=== PATIENT | male | born 1960 | race Caucasian/White ===

== ENCOUNTER 2018-06-15 21:28 | Emergency (ER) | payer MEDICAID ==
[~2018-06-15] VITALS: Ht 188 cm; Wt 104.4 kg
[2018-06-15 21:31] VITALS: RESP 16; Ht 188 cm; Wt 104.4 kg
[2018-06-15 21:34] VITALS: BP 195/94; PULSE 61
--- NOTE | 2018-06-15 22:56 | ERD ---
ER Documentation Chief Complaint Chief Complaint "feeling confused/anxious for over a year," no HOWARD/CP/SOB HPI Is a 58-year-old male comes in with complaints of anxiety. Patient identified with his family to be fairly anxious. He is examined prior to arrival. Upon arrival to the ER bed, patient said he feels much better and now request to be discharged home. Denies suicidal homicidal ideation. Denies auditory or visual hallucinations. ROS All systems reviewed and are negative except as per history of present illness. PMhx/Soc Hx Psychiatric Problems: Yes (ANXIETY. DEPRESSION, SCHZ) Hx Alcohol Use: No Hx Substance Use: No Hx Tobacco Use: No Smoking Status: Never smoker Physical Exam Vitals Vital Signs Date Temp Pulse Resp B/P (MAP) Pulse Ox O2 O2 Flow FiO2 Time Delivery Rate 06/15/18 61 195/94 21:34 (127) 06/15/18 97.8 61 16 213/101 100 21:31 (138) Physical Exam Const: No acute distress Head: Atraumatic Eyes: Normal Conjunctiva ENT: Normal External Ears, Nose and Mouth. Neck: Full range of motion. No meningismus. Resp: Clear to auscultation bilaterally Cardio: Regular rate and rhythm, no murmurs Abd: Soft, non tender, non distended. Normal bowel sounds Skin: No petechiae or rashes Back: No midline or flank tenderness Ext: No cyanosis, or edema Neur: Awake and alert Psych: Normal Mood and Affect Procedures/MDM Medical decision making: This very pleasant patient comes in essentially with anxiety. At this point is clinically stable. Patient will be discharged home. Told to return for worsening symptoms. Departure Diagnosis: Primary Impression: Anxiety Condition: Stable Patient Instructions: Anxiety Reaction ROSELINE MCCALLUM Jun 15, 2018 22:56
== END 2018-06-15 22:52 | disposition home or self-care (01) ==
LOC: E/R 21:28
DX: F41.9 Anxiety disorder, unspecified (principal)
CPT/HCPCS: 99282

== ENCOUNTER 2019-03-03 01:42 | Emergency (ER) | payer OTHER, MEDICAID ==
[~2019-03-03] VITALS: Ht 188 cm; Wt 100.0 kg
[~2019-03-03 01:42] MED LIST: ACET500C5 PO; NALO4SPR NS
[2019-03-03 01:45] VITALS: Ht 188 cm; Wt 100.0 kg
[2019-03-03] MEDS ORDERED: SOD CHLORIDE 0.9% 1,000 ML IV ONE (02:00)
[2019-03-03] MEDS ORDERED: DIPHTH/TET/ACEL PERTUSS (ADULT) 0.5 ML VIAL IM* ONE (04:30)
[2019-03-03] MEDS ORDERED: HALOPERIDOL 5 MG INJ IM ONE (07:00)
[2019-03-03 13:22] VITALS: BP 145/78; PULSE 78; RESP 18
== END 2019-03-03 13:23 | disposition home or self-care (01) ==
LOC: E/R 01:42
DX: F13.10 Sedative, hypnotic or anxiolytic abuse, uncomplicated (principal); F10.120 Alcohol abuse with intoxication, uncomplicated; R41.82 Altered mental status, unspecified
CPT/HCPCS: 36415; 70450; 71045; 72125; 80053; 80307; 81003; 85025; 85610; 85730; 90715; 96372; 99285; J1630; J7030